=== PATIENT | female | born 1970 | race Caucasian/White ===

== ENCOUNTER → 2016-11-29 | Outpatient (CLI) | payer BC ==
[~2016-11-29] VITALS: Ht 158.8 cm; Wt 140.8 kg
[~2016-11-29] MED LIST: GLUCOPHAGE500 MG/TAB PO; PROAIR HFA0.09 MG/AC IH; TOPROL XL 25MG25 MG PO; WELLBUTRIN XL150 MG PO; ZANTAC 150MG T150 MG PO; ZYRTEC 10MG10 MG PO
[2016-11-29 13:52] VITALS: BP 106/72; PULSE 80
[2016-11-29 14:21] VITALS: BP 106/72; PULSE 80
[2016-12-10 14:31] VITALS: BP_SYST 158.75
== END ==
LOC: LIGHT 11:43
DX: E11.65 Type 2 diabetes mellitus with hyperglycemia (principal); E66.01 Morbid (severe) obesity due to excess calories; Z68.43 Body mass index [BMI] 50.0-59.9, adult; J45.998 Other asthma; E78.4 Other hyperlipidemia

== ENCOUNTER → 2017-01-10 | Outpatient (CLI) | payer BC ==
[~2017-01-10] VITALS: Ht 158.8 cm; Wt 137.9 kg
[2017-01-10 11:24] VITALS: BP 140/84; PULSE 80
[2017-01-10 11:43] VITALS: BP 140/84; PULSE 80
[2017-01-21 15:40] VITALS: BP 141/74; PULSE 74
[2017-02-18 15:37] VITALS: BP 118/84; PULSE 80
== END ==
LOC: LIGHT 12-27 10:52
DX: E11.65 Type 2 diabetes mellitus with hyperglycemia (principal); J45.998 Other asthma; E78.4 Other hyperlipidemia; E66.01 Morbid (severe) obesity due to excess calories; Z68.43 Body mass index [BMI] 50.0-59.9, adult

== ENCOUNTER → 2017-02-21 | Outpatient (CLI) | payer BC ==
[~2017-02-21] VITALS: Ht 158.8 cm; Wt 137.0 kg
[2017-02-21 11:47] VITALS: BP 145/83; PULSE 70
[2017-03-04 15:49] VITALS: BP 132/66; PULSE 72
[2017-04-01 15:44] VITALS: BP 124/74; PULSE 69
[2017-04-15 17:25] VITALS: BP 122/80; PULSE 68
== END ==
LOC: LIGHT 11:41
DX: E11.65 Type 2 diabetes mellitus with hyperglycemia (principal); E66.01 Morbid (severe) obesity due to excess calories; Z68.43 Body mass index [BMI] 50.0-59.9, adult; J45.998 Other asthma; E78.4 Other hyperlipidemia

== ENCOUNTER → 2017-05-09 | Outpatient (CLI) | payer BC ==
[~2017-05-09] VITALS: Ht 158.8 cm; Wt 135.4 kg
[2017-05-09 14:46] VITALS: BP 114/80; PULSE 76
== END ==
LOC: LIGHT 04-18 14:30
DX: E11.65 Type 2 diabetes mellitus with hyperglycemia (principal); E66.01 Morbid (severe) obesity due to excess calories; Z68.43 Body mass index [BMI] 50.0-59.9, adult; Z71.3 Dietary counseling and surveillance; J45.909 Unspecified asthma, uncomplicated; E78.5 Hyperlipidemia, unspecified

== ENCOUNTER → 2017-12-11 | Outpatient (CLI) | payer BC | LOC: MC.RAD 14:12 | DX: Z12.31 Encounter for screening mammogram for malignant neoplasm of breast (principal) ==

== ENCOUNTER → 2019-01-05 | Outpatient (CLI) | payer BC | LOC: MC.RAD 10:07 | DX: Z12.31 Encounter for screening mammogram for malignant neoplasm of breast (principal) ==

== ENCOUNTER → 2019-09-18 | Outpatient (CLI) | payer BC | LOC: COL.VAS 07:43 | DX: I10 Essential (primary) hypertension (principal); I34.0 Nonrheumatic mitral (valve) insufficiency; G47.30 Sleep apnea, unspecified ==

== ENCOUNTER 2021-04-18 16:29 | Emergency (ER) | payer BC ==
[~2021-04-18] VITALS: Ht 160 cm; Wt 136.4 kg
[2021-04-18 16:40] VITALS: TEMP 96.9
[2021-04-18 17:36] LABS: BASO % 0.3 % (0.0-2.0); EOS # 0.3 (0.0-0.7); EOS % 3.8 % (0-4.0); GRAN # 5.6 (1.4-6.5); GRAN % 63.8 % (42.2-75.2); HEMATOCRIT 37.5 % (37.0-47.0); HEMOGLOBIN 12.6 g/dl (12.5-16.0); LYMPH # 2.2 (1.2-3.4); LYMPH % 25.3 % (20.0-51.0); MEAN CELL VOLUME 90 fl (80.0-100.0); MEAN CORPUSCULAR HEMOGLOBIN 30 pg (27.0-31.0); MEAN CORPUSCULAR HGB CONC 34 g/dl (33.0-37.0); MEAN PLATELET VOLUME 11.8 fl (7.4-10.4); MONO # 0.6 (0.1-0.6); MONO % 6.6 % (1.7-9.3); PLATELET COUNT 200 K/mm3 (130-400); RED BLOOD COUNT 4.16 M/mm3 (4.10-5.30); REDCELL DISTRIBUTION WIDTH-CV 13.1 % (11.5-14.5)
[2021-04-18 17:46] LABS: ALANINE AMINOTRANSFERASE 21 U/L (4-34); ALBUMIN 3.7 gm/dL (3.5-5.0); ALKALINE PHOSPHATASE 72 U/L (50-136); ANION GAP 4 mmol/L (7-16); AST,SGOT 25 U/L (15-37); BILIRUBIN,TOTAL 0.1 mg/dL (0.0-1.0); BLOOD UREA NITROGEN 15 mg/dL (7-17); CARBON DIOXIDE 29 mmol/L (22-30); CHLORIDE 106 mmol/L (98-107); CREATININE, serum 0.67 (0.52-1.25); GLUCOSE 97 mg/dL (74-106); POTASSIUM 3.8 mmol/L (3.4-5.0); SODIUM 139 mmol/L (137-145); TOTAL PROTEIN 6.8 gm/dL (6.4-8.2)
[2021-04-18 17:59] LABS: TROPONIN-I < 0.012 ng/mL (0.000-0.035)
[2021-04-18 19:33] VITALS: BP 135/75; PULSE 60
== END 2021-04-18 19:36 | disposition home or self-care (01) ==
LOC: COL.ER 16:29
PROVIDERS: Physician Assistant
DX: R53.83 Other fatigue (principal); R51.9 Headache, unspecified; I10 Essential (primary) hypertension; K21.9 Gastro-esophageal reflux disease without esophagitis; Z88.2 Allergy status to sulfonamides; Z79.899 Other long term (current) drug therapy
CPT/HCPCS: J1885; J7030

== ENCOUNTER → 2021-04-20 | Outpatient (CLI) | payer BC | LOC: MC.RAD 09:00 | DX: Z12.31 Encounter for screening mammogram for malignant neoplasm of breast (principal) ==

== ENCOUNTER → 2022-01-29 | Outpatient (CLI) | payer BC | LOC: COL.RAD 12:05 | DX: N85.2 Hypertrophy of uterus (principal); N92.1 Excessive and frequent menstruation with irregular cycle ==

== ENCOUNTER → 2023-02-26 | Outpatient (CLI) | payer BC | LOC: COL.RAD 07:56 | DX: G31.1 Senile degeneration of brain, not elsewhere classified (principal); H47.10 Unspecified papilledema; H93.13 Tinnitus, bilateral; I10 Essential (primary) hypertension; G43.009 Migraine without aura, not intractable, without status migrainosus | CPT/HCPCS: A9575 ==

== ENCOUNTER → 2023-12-06 | Outpatient (CLI) | payer BC ==
[~2023-12-06] MED LIST changes: +CATAPRES 0.1MG0.1 MG PO; +COMPLETE MULTI1 TAB PO; +FLONASEALLERGY NS; +MERIBIN5 MG PO; +NURTEC ODT75 MG PO; +OZEMPIC0.25 MG/0. SQ; +PRILOTC; +PRISTIQ 50 MG T50 MG PO; +TOPROL XL100 MG PO; +TRELEGY ELLIPT1 EACH IH; +VITAMIN B COMPL1 T16 PO; +VITAMIN D31000 IU PO; +XOPENEX HF0.045 MG/A IH
== END ==
LOC: MC.RAD 09:52
DX: Z12.31 Encounter for screening mammogram for malignant neoplasm of breast (principal)